=== PATIENT | male | born 1930 | race Two or more races ===

== ENCOUNTER 2021-05-11 23:19 | Inpatient (IN) | payer MEDICARE ==
[2021-05-11] MEDS ORDERED: SODIUM CHLORIDE 0.9% 1,000 ML IV STA (23:36)
--- NOTE | 2021-05-11 23:40 | ED ---
Weakness HPI - General Chief complaint: Weakness Stated complaint: Weakness, SOB Time Seen by Provider: 05/11/21 23:23 Source: EMS, RN notes reviewed, old records reviewed Mode of arrival: EMS Limitations: physical limitation - History of Present Illness Initial comments: This is an 89-year-old male to the ER for evaluation. Patient is presenting for weakness and not feeling well. Patient was unable to get out of his bed today. Patient has no recent sick contacts no travel history. Patient was unable to get out of bed. Patient is a relatively poor story, history obtained from EMS and patient's chart MD Complaint: generalized weakness, lack of energy, difficulty walking -: hour(s) Location: generalized Severity: moderate Consistency: constant Improves with: none Worsens with: none Context: recent illness, history of similar Associated Symptoms: denies other symptoms - Related Data Allergies Allergy/AdvReac Type Severity Reaction Status Date / Time No Known Allergies Allergy Verified 05/11/21 23:36 Review of Systems ROS Statement: Those systems with pertinent positive or pertinent negative responses have been documented in the HPI. ROS Other: All systems not noted in ROS Statement are negative. Past Medical History History of Any Multi-Drug Resistant Organisms: None Reported Past Surgical History: Pacemaker Past Psychological History: No Psychological Hx Reported Smoking Status: Former smoker Past Alcohol Use History: None Reported Past Drug Use History: None Reported General Exam Limitations: physical limitation General appearance: alert, in no apparent distress Head exam: Present: atraumatic, normocephalic, normal inspection Eye exam: Present: normal appearance, PERRL, EOMI. Absent: scleral icterus, conjunctival injection, periorbital swelling ENT exam: Present: normal exam, mucous membranes moist Neck exam: Present: normal inspection. Absent: tenderness, meningismus, lymphadenopathy Respiratory exam: Present: normal lung sounds bilaterally. Absent: respiratory distress, wheezes, rales, rhonchi, stridor Cardiovascular Exam: Present: regular rate, normal rhythm, normal heart sounds. Absent: systolic murmur, diastolic murmur, rubs, gallop, clicks GI/Abdominal exam: Present: soft, normal bowel sounds. Absent: distended, tenderness, guarding, rebound, rigid Extremities exam: Present: normal inspection, full ROM, normal capillary refill. Absent: tenderness, pedal edema, joint swelling, calf tenderness Back exam: Present: normal inspection Neurological exam: Present: alert, oriented X3, CN II-XII intact Psychiatric exam: Present: normal affect, normal mood Skin exam: Present: warm, dry, intact, normal color. Absent: rash Course Vital Signs 05/11/21 05/11/21 05/12/21 23:22 23:33 01:00 Temperature 101.4 F H Pulse Rate 80 69 Respiratory 18 18 20 Rate Blood Pressure 120/63 87/53 O2 Sat by Pulse 92 L Oximetry 05/12/21 05/12/21 05/12/21 01:15 01:30 02:37 Temperature Pulse Rate 70 Respiratory 20 21 Rate Blood Pressure 80/45 95/46 92/54 O2 Sat by Pulse 96 96 Oximetry - Reevaluation(s) Reevaluation #1: 05/11/21 23:50 Medical record is reviewed Reevaluation #2: 05/12/21 03:13 Has labile blood pressure, patient is given ideal body weight dosing, due to low blood pressure of IV fluid. Unknown source of sepsis but patient being treated as sepsis at this time Reevaluation #3: 05/12/21 03:14 Patient has fully placed for evaluation of possible UTI - Consultations Consultation #1: Spoke with sound who will admit this patient EKG Findings - EKG Comments: EKG Findings:: KG shows wide QRS rate around 60, QRS 122 QTC 179 Procedures - Sepsis Sepsis Focused Exam #1 Time Sepsis Criteria Met: 03:15 Sepsis Focused Exam Date: 05/12/21 Sepsis Focused Exam Time: 05:00 Sepsis Focused Exam Complete: Yes Vital Signs & RN Notes Reviewed: Yes Capillary Refill: < 2 Seconds: Fingers, Toes Peripheral Pulses: Normal: Radial (R), Radial (L), Posterior Tibialis (R), Posterior Tibialis (L), Dorsalis Pedis (R), Dorsalis Pedis (L) Skin Color: Normal for Patient Respiratory Exam: normal lung sounds Cardiovascular Exam: regular rate Medical Decision Making - Medical Decision Making 89 male to the ER for evaluation. Patient states he will be admitted for evaluation regards to fever and sepsis - Lab Data Result diagrams: 05/11/21 23:44 05/11/21 23:44 Lab Results 05/11/21 05/11/21 05/11/21 Range/Units 23:44 23:44 23:44 WBC 17.4 H (3.8-10.6) k/uL RBC 3.90 L (4.30-5.90) m/uL Hgb 12.9 L (13.0-17.5) gm/dL Hct 37.4 L (39.0-53.0) % MCV 95.8 (80.0-100.0) fL MCH 33.0 (25.0-35.0) pg MCHC 34.4 (31.0-37.0) g/dL RDW 14.3 (11.5-15.5) % Plt Count 122 L (150-450) k/uL MPV 7.5 Neutrophils % 91 % Lymphocytes % 3 % Monocytes % 4 % Eosinophils % 1 % Basophils % 0 % Neutrophils # 15.9 H (1.3-7.7) k/uL Lymphocytes # 0.6 L (1.0-4.8) k/uL Monocytes # 0.7 (0-1.0) k/uL Eosinophils # 0.1 (0-0.7) k/uL Basophils # 0.1 (0-0.2) k/uL PT 51.0 H (9.0-12.0) sec INR 5.3 H* (<1.2) APTT 46.7 H (22.0-30.0) sec Sodium 137 (137-145) mmol/L Potassium 5.8 H (3.5-5.1) mmol/L Chloride 114 H (98-107) mmol/L Carbon Dioxide 13 L (22-30) mmol/L Anion Gap 10 mmol/L BUN 89 H (9-20) mg/dL Creatinine 2.28 H (0.66-1.25) mg/dL Est GFR (CKD-EPI)AfAm 28 (>60 ml/min/1.73 sqM) Est GFR (CKD-EPI)NonAf 25 (>60 ml/min/1.73 sqM) Glucose 122 H (74-99) mg/dL Plasma Lactic Acid Robby (0.7-2.0) mmol/L Calcium 8.6 (8.4-10.2) mg/dL Phosphorus 3.7 (2.5-4.5) mg/dL Magnesium 2.0 (1.6-2.3) mg/dL Total Bilirubin 0.6 (0.2-1.3) mg/dL AST 59 (17-59) U/L ALT 31 (4-49) U/L Alkaline Phosphatase 108 (38-126) U/L Creatine Kinase 63 (55-170) U/L CK-MB (CK-2) (0.0-2.4) ng/mL Troponin I (0.000-0.034) ng/mL C-Reactive Protein 1.3 H (<1.0) mg/dL NT-Pro-B Natriuret Pep pg/mL Total Protein 6.2 L (6.3-8.2) g/dL Albumin 3.4 L (3.5-5.0) g/dL TSH 3.350 (0.465-4.680) mIU/L Coronavirus (PCR) (Not Detectd) 05/11/21 05/11/21 05/11/21 Range/Units 23:44 23:44 23:44 WBC (3.8-10.6) k/uL RBC (4.30-5.90) m/uL Hgb (13.0-17.5) gm/dL Hct (39.0-53.0) % MCV (80.0-100.0) fL MCH (25.0-35.0) pg MCHC (31.0-37.0) g/dL RDW (11.5-15.5) % Plt Count (150-450) k/uL MPV Neutrophils % % Lymphocytes % % Monocytes % % Eosinophils % % Basophils % % Neutrophils # (1.3-7.7) k/uL Lymphocytes # (1.0-4.8) k/uL Monocytes # (0-1.0) k/uL Eosinophils # (0-0.7) k/uL Basophils # (0-0.2) k/uL PT (9.0-12.0) sec INR (<1.2) APTT (22.0-30.0) sec Sodium (137-145) mmol/L Potassium (3.5-5.1) mmol/L Chloride (98-107) mmol/L Carbon Dioxide (22-30) mmol/L Anion Gap mmol/L BUN (9-20) mg/dL Creatinine (0.66-1.25) mg/dL Est GFR (CKD-EPI)AfAm (>60 ml/min/1.73 sqM) Est GFR (CKD-EPI)NonAf (>60 ml/min/1.73 sqM) Glucose (74-99) mg/dL Plasma Lactic Acid Robby 1.1 (0.7-2.0) mmol/L Calcium (8.4-10.2) mg/dL Phosphorus (2.5-4.5) mg/dL Magnesium (1.6-2.3) mg/dL Total Bilirubin (0.2-1.3) mg/dL AST (17-59) U/L ALT (4-49) U/L Alkaline Phosphatase (38-126) U/L Creatine Kinase (55-170) U/L CK-MB (CK-2) 1.4 (0.0-2.4) ng/mL Troponin I 0.030 (0.000-0.034) ng/mL C-Reactive Protein (<1.0) mg/dL NT-Pro-B Natriuret Pep 3530 pg/mL Total Protein (6.3-8.2) g/dL Albumin (3.5-5.0) g/dL TSH (0.465-4.680) mIU/L Coronavirus (PCR) (Not Detectd) 05/11/21 Range/Units 23:44 WBC (3.8-10.6) k/uL RBC (4.30-5.90) m/uL Hgb (13.0-17.5) gm/dL Hct (39.0-53.0) % MCV (80.0-100.0) fL MCH (25.0-35.0) pg MCHC (31.0-37.0) g/dL RDW (11.5-15.5) % Plt Count (150-450) k/uL MPV Neutrophils % % Lymphocytes % % Monocytes % % Eosinophils % % Basophils % % Neutrophils # (1.3-7.7) k/uL Lymphocytes # (1.0-4.8) k/uL Monocytes # (0-1.0) k/uL Eosinophils # (0-0.7) k/uL Basophils # (0-0.2) k/uL PT (9.0-12.0) sec INR (<1.2) APTT (22.0-30.0) sec Sodium (137-145) mmol/L Potassium (3.5-5.1) mmol/L Chloride (98-107) mmol/L Carbon Dioxide (22-30) mmol/L Anion Gap mmol/L BUN (9-20) mg/dL Creatinine (0.66-1.25) mg/dL Est GFR (CKD-EPI)AfAm (>60 ml/min/1.73 sqM) Est GFR (CKD-EPI)NonAf (>60 ml/min/1.73 sqM) Glucose (74-99) mg/dL Plasma Lactic Acid Robby (0.7-2.0) mmol/L Calcium (8.4-10.2) mg/dL Phosphorus (2.5-4.5) mg/dL Magnesium (1.6-2.3) mg/dL Total Bilirubin (0.2-1.3) mg/dL AST (17-59) U/L ALT (4-49) U/L Alkaline Phosphatase (38-126) U/L Creatine Kinase (55-170) U/L CK-MB (CK-2) (0.0-2.4) ng/mL Troponin I (0.000-0.034) ng/mL C-Reactive Protein (<1.0) mg/dL NT-Pro-B Natriuret Pep pg/mL Total Protein (6.3-8.2) g/dL Albumin (3.5-5.0) g/dL TSH (0.465-4.680) mIU/L Coronavirus (PCR) Not Detected (Not Detectd) Critical Care Time Critical Care Time: Yes Total Critical Care Time: 31 Disposition Clinical Impression: Fever, Sepsis Disposition: ADMITTED IP TO THIS HOSP Condition: Fair Is patient prescribed a controlled substance at d/c from ED?: No Referrals: None,Stated [Primary Care Provider] - 1-2 days
[2021-05-12] MEDS ORDERED: IBUPROFEN 600 MG TAB PO STA (00:12)
[2021-05-12 00:24] LABS: Basophils # (A) 0.1 k/uL (0-0.2); Basophils % (A) 0 %; Eosinophils # (A) 0.1 k/uL (0-0.7); Eosinophils % (A) 1 %; HCT 37.4 % (39.0-53.0); HGB 12.9 gm/dL (13.0-17.5); Lymphocytes # (A) 0.6 k/uL (1.0-4.8); Lymphocytes % (A) 3 %; MCHC 34.4 g/dL (31.0-37.0); MCV 95.8 fL (80.0-100.0); Mean Platelet Volume 7.5; Monocytes # (A) 0.7 k/uL (0-1.0); Monocytes % (A) 4 %; Neutrophils # (A) 15.9 k/uL (1.3-7.7); Neutrophils % (A) 91 %; Platelet Count 122 k/uL (150-450); RDW 14.3 % (11.5-15.5); WBC 17.4 k/uL (3.8-10.6)
--- NOTE | 2021-05-12 00:30 | XR ---
EXAMINATION TYPE: XR chest 2V DATE OF EXAM: 05/12/2021 COMPARISON: NONE HISTORY: Weakness TECHNIQUE: 2 views FINDINGS: Heart is enlarged. There is no heart failure. There is left axillary pacemaker. There is ri ght shoulder prosthesis. Costophrenic angles are fairly clear. IMPRESSION: Cardiomegaly. No heart failure or pulmonary consolidation.
[2021-05-12 00:39] LABS: Partial Thromboplastin Time 46.7 sec (22.0-30.0)
[2021-05-12 00:41] LABS: INR 5.3 (<1.2)
[2021-05-12 01:02] LABS: Creatine Kinase MB 1.4 ng/mL (0.0-2.4); Troponin I 0.03 ng/mL (0.000-0.034)
[2021-05-12 01:06] LABS: Albumin 3.4 g/dL (3.5-5.0); C Reactive Protein 1.3 mg/dL (<1.0); Calcium 8.6 mg/dL (8.4-10.2); Phosphorus 3.7 mg/dL (2.5-4.5); Potassium 5.8 mmol/L (3.5-5.1); Total Bilirubin 0.6 mg/dL (0.2-1.3); Total Protein 6.2 g/dL (6.3-8.2)
[2021-05-12] MEDS ORDERED: SODIUM CHLORIDE 0.9% 2,000 ML IV STA (01:44)
[2021-05-12] MEDS ORDERED: SODIUM CHLORIDE 0.9% 1,000 ML IV STA (01:44)
[2021-05-12] MEDS ORDERED: ONDANSETRON 4 MG/2 ML VIAL IVP PRN (03:12)
[2021-05-12] MEDS ORDERED: NALOXONE 0.4 MG/ML 1 ML VIAL IV PRN (03:12)
[2021-05-12] MEDS ORDERED: MORPHINE SULFATE 4 MG/ML SYRINGE IV PRN (03:12)
[2021-05-12] MEDS ORDERED: SODIUM CHLORIDE 0.9% 1,000 ML IV SCH (03:15)
[2021-05-12 03:25] LABS: Appearance,Urine Clear (Clear); Bacteria,Urine Rare /hpf; Bilirubin,Urine Negative (Negative); Blood,Urine Small (Negative); Color,Urine Yellow; Glucose,Urine (UA) Negative (Negative); Hyaline Casts,Urine 7 /lpf (0-2); Ketones,Urine Negative (Negative); Leukocyte Esterase,Urine Negative (Negative); Mucus,Urine Rare /hpf; Nitrite,Urine Negative (Negative); Protein,Urine Negative (Negative); RBC,Urine 2 /hpf (0-5); Specific Gravity,Urine 1.013 (1.001-1.035); Squamous Epithelial Cell,Urine <1 /hpf (0-4); Urobilinogen,Urine <2.0 mg/dL (<2.0); WBC,Urine 1 /hpf (0-5)
[2021-05-12] MEDS ORDERED: SODIUM CHLORIDE 0.9% 1,000 ML IV ONE (03:30)
[2021-05-12] MEDS ORDERED: VANCOMYCIN IV PER PHARMACY 1 EACH MISC MISCELLANE PRN (04:29)
--- NOTE | 2021-05-12 04:35 | P.HPIM ---
History of Present Illness H&P Date: 05/12/21 Patient is a pleasant 89-year-old male with a PMH of Afib on Coumadin, chronic CHF, BPH gout, hypertension, and hyperlipidemia who presented to the emergency room with complaints of lethargy and chills. History supplemented by the at the bedside. They report that over the past few days, they have noticed his activity level continues to deteriorate. The patient reports feeling tired and that he also developed chills over the past 2 days. He denied any additional complaints. Denied urinary complaints, cough, diarrhea. Also denied headaches, weakness, numbness, tingling. Also denied chest pain, shortness of breath. He normally is able to ambulate with a walker but was unable toasts stand up at all over the past 1-2 days Laboratory evaluation in the emergency room revealed WBC count of 17.4, hemoglobin 12.9, potassium 5.8, CO2 13, BUN 89, creatinine 2.28, unremarkable UA. Review of systems: Pertinent positives and negatives as discussed in HPI, a complete review of systems was performed and all other systems are negative. Physical examination: General: non toxic, no distress, appears at stated age, obese Derm: no unusual rashes/lesions no unusual ecchymoses, warm, dry Head: atraumatic, normocephalic, symmetric Eyes: EOMI, no lid lag, anicteric sclera, pupils equal round reactive to light ENT: Nose and ears atraumatic, no thrush, no pharyngeal erythema Neck: No thyromegaly, no cervical lymphadenopathy, trachea midline, supple Mouth: no lip lesion, mucus membranes moist Cardiovascular: S1S2 reg, no murmur, positive posterior tibial pulse bilateral, 2+ zaira LE pitting edema w/ chronic venous stasis changes, capillary refill less than 2 seconds Lungs: CTA bilateral, no rhonchi, no rales , no accessory muscle use Abdominal: soft, nontender to palpation, no guarding, no appreciable organomegaly, normal bowel sounds Ext: no gross muscle atrophy, muscle strength 4 out of 5 in all 4 extremities grossly, no contractures, Neuro: CN II-XI grossly intact, light touch intact all 4 extremities, finger to nose within normal limits, Psych: Alert, oriented, appropriate affect Assessment/plan SIRS of unknown etiology -Follow blood cultures -Empiric antibiotics for now -ID consult Kidney injury, acute versus chronic -Continue to monitor BMP -Hold off on IV fluids in setting of significant CHF history Chronic conditions: Hypertension, hyperlipidemia, chronic CHF -Hold off on her home antihypertensives in setting of borderline BP -Continue with remaining home medications DVT prophylaxis -Coumadin The patient is admitted with an anticipated than 2 midnight stay for evaluation of SIRS. CODE STATUS:Full Code Discussed with: Patient, Anticipated discharge date: 2-[address]: Home Past Medical History Past Medical History: Atrial Fibrillation, GERD/Reflux, Hypertension, Osteoarthritis (OA) Additional Past Medical History / Comment(s): Pts History of Any Multi-Drug Resistant Organisms: None Reported Past Surgical History: Pacemaker Additional Past Surgical History / Comment(s): Gallbladder removed, pt has a hx of two pacemakers placed. Past Psychological History: No Psychological Hx Reported Smoking Status: Former smoker Past Alcohol Use History: None Reported Past Drug Use History: None Reported Medications and Allergies Allergies Allergy/AdvReac Type Severity Reaction Status Date / Time No Known Allergies Allergy Verified 05/11/21 23:36 Physical Exam Vitals: Vital Signs Temp Pulse Resp BP Pulse Ox 05/12/21 03:16 69 105/54 05/12/21 02:37 92/54 05/12/21 01:30 70 21 95/46 96 05/12/21 01:15 20 80/45 96 05/12/21 01:00 69 20 87/53 05/11/21 23:33 18 05/11/21 23:22 101.4 F H 80 18 120/63 92 L Intake and Output 05/11/21 05/11/21 05/12/21 14:59 22:59 06:59 Other: Weight 111.13 kg Results CBC & Chem 7: 05/11/21 23:44 05/11/21 23:44 Labs: Abnormal Lab Results - Last 24 Hours (Table) 05/11/21 05/11/21 05/11/21 Range/Units 23:44 23:44 23:44 WBC 17.4 H (3.8-10.6) k/uL RBC 3.90 L (4.30-5.90) m/uL Hgb 12.9 L (13.0-17.5) gm/dL Hct 37.4 L (39.0-53.0) % Plt Count 122 L (150-450) k/uL Neutrophils # 15.9 H (1.3-7.7) k/uL Lymphocytes # 0.6 L (1.0-4.8) k/uL PT 51.0 H (9.0-12.0) sec INR 5.3 H* (<1.2) APTT 46.7 H (22.0-30.0) sec Potassium 5.8 H (3.5-5.1) mmol/L Chloride 114 H (98-107) mmol/L Carbon Dioxide 13 L (22-30) mmol/L BUN 89 H (9-20) mg/dL Creatinine 2.28 H (0.66-1.25) mg/dL Glucose 122 H (74-99) mg/dL C-Reactive Protein 1.3 H (<1.0) mg/dL Total Protein 6.2 L (6.3-8.2) g/dL Albumin 3.4 L (3.5-5.0) g/dL Urine Blood (Negative) Urine Bacteria (None) /hpf Hyaline Casts (0-2) /lpf Urine Mucus (None) /hpf 05/12/ Range/Units 03:15 WBC (3.8-10.6) k/uL RBC (4.30-5.90) m/uL Hgb (13.0-17.5) gm/dL Hct (39.0-53.0) % Plt Count (150-450) k/uL Neutrophils # (1.3-7.7) k/uL Lymphocytes # (1.0-4.8) k/uL PT (9.0-12.0) sec INR (<1.2) APTT (22.0-30.0) sec Potassium (3.5-5.1) mmol/L Chloride (98-107) mmol/L Carbon Dioxide (22-30) mmol/L BUN (9-20) mg/dL Creatinine (0.66-1.25) mg/dL Glucose (74-99) mg/dL C-Reactive Protein (<1.0) mg/dL Total Protein (6.3-8.2) g/dL Albumin (3.5-5.0) g/dL Urine Blood Small H (Negative) Urine Bacteria Rare H (None) /hpf Hyaline Casts 7 H (0-2) /lpf Urine Mucus Rare H (None) /hpf
[2021-05-12] MEDS ORDERED: VANCOMYCIN 1,750 MG in SODIUM CHLORIDE 0.9% 500 ML 500 ML IVPB ONE (04:45)
[2021-05-12] MEDS ORDERED: CALCIUM GLUCONATE 1 GM in SODIUM CHLORIDE 0.9% 100 ML IVPB ONE (08:00)
[2021-05-12] MEDS ORDERED: PIPERACILLIN-TAZOBACTAM 3.375 GM in SODIUM CHLORIDE 0.9% 100 ML IVPB SCH (09:00)
--- NOTE | 2021-05-12 09:16 | XR ---
EXAMINATION TYPE: XR chest 1V portable DATE OF EXAM: 05/12/2021 COMPARISON: 05/12/2021 INDICATION: Short of breath TECHNIQUE: Single frontal view of the chest is obtained. FINDINGS: The heart size is mildly prominent. Pacemaker overlies left chest. The pulmonary vasculature is normal. The lungs are clear. There is left shoulder prosthesis. IMPRESSION: 1. No acute pulmonary process.
[2021-05-12 09:17] LABS: HCT 36.7 % (39.0-53.0); HGB 12.1 gm/dL (13.0-17.5); Hypochromasia Slight; MCH 32.9 pg (25.0-35.0); MCHC 32.9 g/dL (31.0-37.0); MCV 100.2 fL (80.0-100.0); Macrocytosis Slight; Mean Platelet Volume 7.2; Platelet Count 119 k/uL (150-450); RBC 3.67 m/uL (4.30-5.90); RDW 14.8 % (11.5-15.5); WBC 15.1 k/uL (3.8-10.6)
[2021-05-12 09:23] LABS: Magnesium 1.9 mg/dL (1.6-2.3); Phosphorus 3.8 mg/dL (2.5-4.5); Potassium 5.4 mmol/L (3.5-5.1); Total Bilirubin 0.5 mg/dL (0.2-1.3); Total Protein 5.8 g/dL (6.3-8.2)
[2021-05-12 09:26] LABS: Prothrombin Time 58.2 sec (9.0-12.0)
[2021-05-12] MEDS ORDERED: FUROSEMIDE 10 MG/ML 4 ML VIAL IV STA (09:49)
[2021-05-12] MEDS: PANTOPRAZOLE 40 MG/10 ML VIAL IV SCH (09:49)
[2021-05-12 11:00] VITALS: BMI 35.1
--- NOTE | 2021-05-12 14:02 | P.PN ---
Subjective Progress Note Date: 05/12/21 Principal diagnosis: rigors Hospitalist Interval Note Patient seen and examined at bedside. He is feeling somewhat better than on admission. Still feeling short of breath. Denies any nausea or vomiting. Feels very cold and overall not right. Vital signs reviewed General: non toxic, no distress, appears at stated age Derm: Right second toe with some swelling, erythema, and a slight area of necrosis on the tip, hemosiderin deposits bilateral with thick yellow scale, onychomycoses noted warm, dry Head: atraumatic, normocephalic, symmetric Eyes: EOMI, no lid lag, anicteric sclera Mouth: no lip lesion, mucus membranes moist Cardiovascular: S1S2 reg, no murmur, positive posterior tibial pulse bilateral, Lungs: Coarse breath sounds bilateral bilateral, no rhonchi, no rales , no accessory muscle use Abdominal: soft, nontender to palpation, no guarding, no appreciable organomegaly Ext: no gross muscle atrophy, no edema, no contractures Neuro: CN II-XI grossly intact, no focal neuro deficits Psych: Alert, oriented, appropriate affect Assessment/Plan: Sepsis Possible infection right second toe coumadin toxicity hyperkalemia ayah anemia HTN HLD CHF, chornic, unknown type thrombocytopenia - rocephin, vanco X 1 given, check XR right foot. - D/W ID who will evaluate the toe and make further recommendations - Calcium gluconate, Lasix X 1 with IVF to wast potassium - await blood cultures - lisinopril on hold This is an update note for patient , for full note on 05/12 see H and P. There is no charge associated with this note. Objective - Vital Signs Vital signs: Vital Signs Temp 98.3 F 05/12/21 12:00 Pulse 68 05/12/21 12:00 Resp 18 05/12/21 12:00 BP 112/67 05/12/21 12:00 Pulse Ox 96 05/12/21 12:00 Intake & Output 05/11/21 05/12/21 05/12/21 18:59 06:59 18:59 Intake Total 118 Output Total 100 Balance -100 118 Weight 111 kg 111 kg Intake: Oral 118 Output: Urine 100 Uretheral (Rangel) 100 Other: Voiding Method Indwelling Catheter - Labs CBC & Chem 7: 05/12/21 08:47 05/12/21 08:47 Labs: Abnormal Lab Results - Last 24 Hours (Table) 05/11/21 05/11/21 05/11/21 Range/Units 23:44 23:44 23:44 WBC 17.4 H (3.8-10.6) k/uL RBC 3.90 L (4.30-5.90) m/uL Hgb 12.9 L (13.0-17.5) gm/dL Hct 37.4 L (39.0-53.0) % MCV (80.0-100.0) fL Plt Count 122 L (150-450) k/uL Neutrophils # 15.9 H (1.3-7.7) k/uL Lymphocytes # 0.6 L (1.0-4.8) k/uL PT 51.0 H (9.0-12.0) sec INR 5.3 H* (<1.2) APTT 46.7 H (22.0-30.0) sec Potassium 5.8 H (3.5-5.1) mmol/L Chloride 114 H (98-107) mmol/L Carbon Dioxide 13 L (22-30) mmol/L BUN 89 H (9-20) mg/dL Creatinine 2.28 H (0.66-1.25) mg/dL Glucose 122 H (74-99) mg/dL Calcium (8.4-10.2) mg/dL C-Reactive Protein 1.3 H (<1.0) mg/dL Total Protein 6.2 L (6.3-8.2) g/dL Albumin 3.4 L (3.5-5.0) g/dL Urine Blood (Negative) Urine Bacteria (None) /hpf Hyaline Casts (0-2) /lpf Urine Mucus (None) /hpf 05/12/21 05/12/21 05/12/21 Range/Units 03:15 08:47 08:47 WBC 15.1 H (3.8-10.6) k/uL RBC 3.67 L (4.30-5.90) m/uL Hgb 12.1 L (13.0-17.5) gm/dL Hct 36.7 L (39.0-53.0) % MCV 100.2 H (80.0-100.0) fL Plt Count 119 L (150-450) k/uL Neutrophils # (1.3-7.7) k/uL Lymphocytes # (1.0-4.8) k/uL PT 58.2 H (9.0-12.0) sec INR 6.0 H* (<1.2) APTT (22.0-30.0) sec Potassium (3.5-5.1) mmol/L Chloride (98-107) mmol/L Carbon Dioxide (22-30) mmol/L BUN (9-20) mg/dL Creatinine (0.66-1.25) mg/dL Glucose (74-99) mg/dL Calcium (8.4-10.2) mg/dL C-Reactive Protein (<1.0) mg/dL Total Protein (6.3-8.2) g/dL Albumin (3.5-5.0) g/dL Urine Blood Small H (Negative) Urine Bacteria Rare H (None) /hpf Hyaline Casts 7 H (0-2) /lpf Urine Mucus Rare H (None) /hpf 05/12/21 Range/Units 08:47 WBC (3.8-10.6) k/uL RBC (4.30-5.90) m/uL Hgb (13.0-17.5) gm/dL Hct (39.0-53.0) % MCV (80.0-100.0) fL Plt Count (150-450) k/uL Neutrophils # (1.3-7.7) k/uL Lymphocytes # (1.0-4.8) k/uL PT (9.0-12.0) sec INR (<1.2) APTT (22.0-30.0) sec Potassium 5.4 H (3.5-5.1) mmol/L Chloride 117 H (98-107) mmol/L Carbon Dioxide 14 L (22-30) mmol/L BUN 80 H (9-20) mg/dL Creatinine 1.98 H (0.66-1.25) mg/dL Glucose 124 H (74-99) mg/dL Calcium 8.0 L (8.4-10.2) mg/dL C-Reactive Protein (<1.0) mg/dL Total Protein 5.8 L (6.3-8.2) g/dL Albumin 3.0 L (3.5-5.0) g/dL Urine Blood (Negative) Urine Bacteria (None) /hpf Hyaline Casts (0-2) /lpf Urine Mucus (None) /hpf
[2021-05-12 15:08] LABS: Appearance,Urine Cloudy (Clear); Bacteria,Urine Rare /hpf; Bilirubin,Urine Negative (Negative); Blood,Urine Moderate (Negative); Color,Urine Colorless; Glucose,Urine (UA) Negative (Negative); Ketones,Urine Negative (Negative); Leukocyte Esterase,Urine Large (Negative); Mucus,Urine Rare /hpf; Nitrite,Urine Negative (Negative); Protein,Urine Negative (Negative); RBC,Urine 21 /hpf (0-5); Specific Gravity,Urine 1.007 (1.001-1.035); Squamous Epithelial Cell,Urine <1 /hpf (0-4); Urobilinogen,Urine <2.0 mg/dL (<2.0); WBC,Urine 46 /hpf (0-5)
[2021-05-12] MEDS: metroNIDAZOLE 500 MG TAB PO SCH ×2 (15:13→20:24)
--- NOTE | 2021-05-12 15:56 | XR ---
EXAMINATION TYPE: XR foot limited RT DATE OF EXAM: 05/12/2021 COMPARISON: NONE HISTORY: Pain TECHNIQUE: Three views are submitted. FINDINGS: Successful phalanges difficult due to positioning and flexion. Diffuse osteopenia with vascular calci fications and calcaneal spur. Arthropathy of the tarsometatarsal junction, all PIP, DIP and MTP joint s. No obvious fracture as visualized. IMPRESSION: 1. Limited exam demonstrates no definite destructive change or acute fracture. Distal phalanx second digit not well seen. Correlate with triple phase bone scan if there is concern for osteomyelitis. 2. Arthropathy and diffuse osteopenia.
[2021-05-12] MEDS ORDERED: WARFARIN 0.5 MG TAB PO ONE (18:00)
[2021-05-12] MEDS: GABAPENTIN 100 MG CAP PO SCH (20:24)
--- NOTE | 2021-05-12 23:20 | P.CONS ---
History of Present Illness - Reason for Consult Consult date: 05/12/21 sepsis Requesting physician: Ramila Guerrero - Chief Complaint not feeling well and diarrhea x 1 day - History of Present Illness History of present illness : Patient is 89-year male presented to the hospital last night for evaluation of weakness and not feeling well patient was unable to get out of bed the day of presentation to the hospital the patient also complaining of diarrhea he did have 4 episodes of loose stool no blood or mucus in the stool patient denies any abdominal pain no nausea no vomiting patient also have difficulty urination and a Rangel catheter has to be placed when the patient presented to hospital on arrival to the ER the patient had a fe layla of 101 F patient did have white count of 17.4 with a left shift INR was elevated as well as BUN and creatinine liver enzymes are normal patient did have a negative UA cortez PCR was negative patient was started on vancomycin and Zosyn with concern for possible source of sepsis infectious disease was consulted for further management patient did have a chest x-ray with cardiomegaly but no heart failure or pulmonary consolidation patient also have a slight swelling to the right second toe with the nail being damaged however the patient currently do not have any symptom of pain to the right second toe Review of system: Positive point has been mentioned in HPI rest of the systems are negative Past medical history : Reviewed, documented below Past surgical history : Reviewed, documented below Social history: Reviewed, documented below Medications: Reviewed, as documented below GENERAL DESCRIPTION: Elderly male lying in bed, no distress. No tachypnea or accessory muscle of respiration use. HEENT: Shows Pallor , no scleral icterus. Oral mucous membrane is dry. NECK: Trachea central, no thyromegaly. LUNGS: Unlabored breathing. Clear to auscultation anteriorly. No wheeze or crackle. HEART: S1, S2, regular rate and rhythm. ABDOMEN: Soft, no tenderness , guarding or rigidity EXTREMITIES: No edema of feet. Right second toe minimal swelling redness no drainage SKIN: No rash, no masses palpable. NEUROLOGICAL: The patient is awake, alert, oriented x3, mood and affect normal. LABS AND RADIOLOGY: Reviewed results see below Assessment : Patient presented to hospital with sepsis in this patient who did have a fever elevated white count in this patient apparently did have a GI s ymptoms of diarrhea and also difficulty urination likely source of sepsis is possible urinary tract infection initial UA was reported negative questionable level versus possible colitis in this we did have significant diarrhea but did not have any abdominal tenderness 2-patient with renal insufficiency and high risk of nephrotoxicity from vancomycin Plan: 1-we will repeat urine culture 2-check stool for significant stool culture 3-Zosyn to continue however discontinue vancomycin reviewed risk of nephrotoxicity We will follow on clinical condition and cultures to further adjust medication if needed Thank you for this consultation we will follow the patient along with you Past Medical History Past Medical History: Atrial Fibrillation, GERD/Reflux, Hypertension, Osteoarthritis (OA) Additional Past Medical History / Comment(s): Pts History of Any Multi-Drug Resistant Organisms: None Reported Past Surgical History: Pacemaker Additional Past Surgical History / Comment(s): Gallbladder removed, pt has a hx of two pacemakers placed. Past Anesthesia/Blood Transfusion Reactions: No Reported Reaction Type of Cardiac Device: Permanent Pacemaker Device Placement Date:: 2017 Past Psychological History: No Psychological Hx Reported Smoking Status: Former smoker Past Alcohol Use History: None Reported Past Drug Use History: None Reported - Past Family History Father Family Medical History: CVA/TIA, Myocardial Infarction ([place]) Medications and Allergies Home Medications Medication Instructions Recorded Confirmed Type Atenolol [Tenormin] 100 mg PO DAILY 05/12/21 05/12/21 History Ezetimibe [Zetia] 10 mg PO DAILY 05/12/21 05/12/21 History Gabapentin [Neurontin] 100 mg PO BID 05/12/21 05/12/21 History Pravastatin Sodium [Pravachol] 80 mg PO DAILY 05/12/21 05/12/21 History Warfarin [Coumadin] 2.5 mg PO FRSA@0900 05/12/21 05/12/21 History Warfarin [Coumadin] 5 mg PO SUMOTUWETH@0900 05/12/21 05/12/21 History lisinopriL 40 mg PO DAILY 05/12/21 05/12/21 History Allergies Allergy/AdvReac Type Severity Reaction Status Date / Time No Known Allergies Allergy Verified 05/12/21 09:09 Physical Exam Vitals: Vital Signs Temp Pulse Pulse Resp BP BP Pulse Ox 05/12/21 05:15 97.7 F 70 18 96/52 98 05/12/21 04:00 70 16 110/57 97 05/12/21 03:35 98.5 F 73 20 118/73 99 05/12/21 03:30 98.0 F 70 14 100/52 97 05/12/21 03:16 69 105/54 05/12/21 02:37 92/54 05/12/21 01:30 70 21 95/46 96 05/12/21 01:15 20 80/45 96 05/12/21 01:00 69 20 87/53 05/11/21 23:33 18 05/11/21 23:22 101.4 F H 80 18 120/63 92 L Intake and Output 05/11/21 05/12/21 05/12/21 22:59 06:59 14:59 Intake Total 118 Output Total 100 Balance -100 118 Intake: Oral 118 Output: Urine 100 Uretheral (Rangel) 100 Other: Voiding Method Indwelling Catheter Weight 111 kg Results CBC & Chem 7: 05/12/21 08:47 05/12/21 08:47 Labs: Abnormal Lab Results - Last 24 Hours (Table) 05/11/21 05/11/21 05/11/21 Range/Units 23:44 23:44 23:44 WBC 17.4 H (3.8-10.6) k/uL RBC 3.90 L (4.30-5.90) m/uL Hgb 12.9 L (13.0-17.5) gm/dL Hct 37.4 L (39.0-53.0) % MCV (80.0-100.0) fL Plt Count 122 L (150-450) k/uL Neutrophils # 15.9 H (1.3-7.7) k/uL Lymphocytes # 0.6 L (1.0-4.8) k/uL PT 51.0 H (9.0-12.0) sec INR 5.3 H* (<1.2) APTT 46.7 H (22.0-30.0) sec Potassium 5.8 H (3.5-5.1) mmol/L Chloride 114 H (98-107) mmol/L Carbon Dioxide 13 L (22-30) mmol/L BUN 89 H (9-20) mg/dL Creatinine 2.28 H (0.66-1.25) mg/dL Glucose 122 H (74-99) mg/dL Calcium (8.4-10.2) mg/dL C-Reactive Protein 1.3 H (<1.0) mg/dL Total Protein 6.2 L (6.3-8.2) g/dL Albumin 3.4 L (3.5-5.0) g/dL Urine Blood (Negative) Urine Bacteria (None) /hpf Hyaline Casts (0-2) /lpf Urine Mucus (None) /hpf 05/12/21 05/12/21 05/12/21 Range/Units 03:15 08:47 08:47 WBC 15.1 H (3.8-10.6) k/uL RBC 3.67 L (4.30-5.90) m/uL Hgb 12.1 L (13.0-17.5) gm/dL Hct 36.7 L (39.0-53.0) % MCV 100.2 H (80.0-100.0) fL Plt Count 119 L (150-450) k/uL Neutrophils # (1.3-7.7) k/uL Lymphocytes # (1.0-4.8) k/uL PT 58.2 H (9.0-12.0) sec INR 6.0 H* (<1.2) APTT (22.0-30.0) sec Potassium (3.5-5.1) mmol/L Chloride (98-107) mmol/L Carbon Dioxide (22-30) mmol/L BUN (9-20) mg/dL Creatinine (0.66-1.25) mg/dL Glucose (74-99) mg/dL Calcium (8.4-10.2) mg/dL C-Reactive Protein (<1.0) mg/dL Total Protein (6.3-8.2) g/dL Albumin (3.5-5.0) g/dL Urine Blood Small H (Negative) Urine Bacteria Rare H (None) /hpf Hyaline Casts 7 H (0-2) /lpf Urine Mucus Rare H (None) /hpf 05/12/21 Range/Units 08:47 WBC (3.8-10.6) k/uL RBC (4.30-5.90) m/uL Hgb (13.0-17.5) gm/dL Hct (39.0-53.0) % MCV (80.0-100.0) fL Plt Count (150-450) k/uL Neutrophils # (1.3-7.7) k/uL Lymphocytes # (1.0-4.8) k/uL PT (9.0-12.0) sec INR (<1.2) APTT (22.0-30.0) sec Potassium 5.4 H (3.5-5.1) mmol/L Chloride 117 H (98-107) mmol/L Carbon Dioxide 14 L (22-30) mmol/L BUN 80 H (9-20) mg/dL Creatinine 1.98 H (0.66-1.25) mg/dL Glucose 124 H (74-99) mg/dL Calcium 8.0 L (8.4-10.2) mg/dL C-Reactive Protein (<1.0) mg/dL Total Protein 5.8 L (6.3-8.2) g/dL Albumin 3.0 L (3.5-5.0) g/dL Urine Blood (Negative) Urine Bacteria (None) /hpf Hyaline Casts (0-2) /lpf Urine Mucus (None) /hpf
[2021-05-13] MEDS ORDERED: VANCOMYCIN 1,750 MG in SODIUM CHLORIDE 0.9% 500 ML 500 ML IVPB ONE (06:00)
[2021-05-13 07:57] LABS: Basophils % (A) 0 %; Eosinophils # (A) 0.2 k/uL (0-0.7); Eosinophils % (A) 2 %; HCT 34.6 % (39.0-53.0); HGB 11.4 gm/dL (13.0-17.5); Lymphocytes # (A) 1.4 k/uL (1.0-4.8); Lymphocytes % (A) 16 %; MCH 32.6 pg (25.0-35.0); MCV 98.9 fL (80.0-100.0); Macrocytosis Slight; Mean Platelet Volume 7.7; Monocytes # (A) 0.5 k/uL (0-1.0); Monocytes % (A) 6 %; Neutrophils # (A) 6.6 k/uL (1.3-7.7); Neutrophils % (A) 74 %; Platelet Count 106 k/uL (150-450); RDW 14.7 % (11.5-15.5); WBC 8.9 k/uL (3.8-10.6)
[2021-05-13 08:08] LABS: INR 3.7 (<1.2); Prothrombin Time 35.4 sec (9.0-12.0)
[2021-05-13 09:23] LABS: Albumin 2.7 g/dL (3.5-5.0); Calcium 8.5 mg/dL (8.4-10.2); Potassium 4.7 mmol/L (3.5-5.1); Total Bilirubin 0.3 mg/dL (0.2-1.3); Total Protein 5.4 g/dL (6.3-8.2)
[2021-05-13] MEDS: metroNIDAZOLE 500 MG TAB PO SCH ×3 (09:23→19:47)
[2021-05-13] MEDS: atenoloL 50 MG TAB PO SCH (09:23)
[2021-05-13] MEDS: PANTOPRAZOLE 40 MG/10 ML VIAL IV SCH (09:23)
[2021-05-13] MEDS: GABAPENTIN 100 MG CAP PO SCH ×2 (09:23→19:47)
[2021-05-13] MEDS: PRAVASTATIN SODIUM 80 MG TAB PO SCH (09:24)
[2021-05-13] MEDS: EZETIMIBE 10 MG TAB PO SCH (09:24)
--- NOTE | 2021-05-13 14:04 | P.PN ---
Subjective Progress Note Date: 05/13/21 Principal diagnosis: CC: weakness Patient is a pleasant 89-year-old male with a PMH of Afib on Coumadin, chronic CHF, BPH gout, hypertension, and hyperlipidemia who presented to the emergency room with complaints of lethargy and chills. On admission patient reported d ifficulty with urination as well as diarrhea. He had a fever of 101.4 and a WBC count of 17. This morning patient states that he is feeling better. He denies any nausea vomiting fever and chills. Patient states that prior to coming in he was having a difficult time with urination. He states Rangel catheter was placed in the ED. Objective - Vital Signs Vital signs: Vital Signs Temp 97.9 F 05/13/21 08:00 Pulse 70 05/13/21 12:00 Resp 17 05/13/21 12:00 BP 99/64 05/13/21 12:00 Pulse Ox 99 05/13/21 12:00 Intake & Output 05/12/21 05/13/21 05/13/21 18:59 06:59 18:59 Intake Total 598 240 530 Output Total 1800 2200 Balance -1202 -1960 530 Weight 111 kg 112.5 kg Intake: Intake, IV Titration 50 Amount cefTRIAXone 2 gm In 50 Sodium Chloride 0.9% 50 ml @ 100 mls/hr IVPB Q24HR [facility] Rx#:[id number] Oral 598 240 480 Output: Urine 1800 2200 Other: Voiding Method Indwelling Catheter Indwelling Catheter - Exam General examination - Alert and Oriented 3 in NAD, appears chronically debilitated Heart - + S1S2 no murmurs Lungs - Clear to auscultation Abdomen soft NT ND +ve BS, obese Extremities - No edema DIRECTOR DIGITAL [employer]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 - Moving all 4 extremities spontaneously Psych - Calm and cooperative - Labs CBC & Chem 7: 05/13/21 07:18 05/13/21 07:18 Labs: Abnormal Lab Results - Last 24 Hours (Table) 05/12/21 05/13/21 05/13/21 Range/Units 14:30 07:18 07:18 RBC 3.50 L (4.30-5.90) m/uL Hgb 11.4 L (13.0-17.5) gm/dL Hct 34.6 L (39.0-53.0) % Plt Count 106 L (150-450) k/uL PT 35.4 H (9.0-12.0) sec INR 3.7 H (<1.2) Chloride (98-107) mmol/L Carbon Dioxide (22-30) mmol/L BUN (9-20) mg/dL Creatinine (0.66-1.25) mg/dL Total Protein (6.3-8.2) g/dL Albumin (3.5-5.0) g/dL Urine Blood Moderate H (Negative) Ur Leukocyte Esterase Large H (Negative) Urine RBC 21 H (0-5) /hpf Urine WBC 46 H (0-5) /hpf Urine WBC Clumps Few H (None) /hpf Urine Bacteria Rare H (None) /hpf Urine Mucus Rare H (None) /hpf 05/13/21 Range/Units 07:18 RBC (4.30-5.90) m/uL Hgb (13.0-17.5) gm/dL Hct (39.0-53.0) % Plt Count (150-450) k/uL PT (9.0-12.0) sec INR (<1.2) Chloride 116 H (98-107) mmol/L Carbon Dioxide 14 L (22-30) mmol/L BUN 69 H (9-20) mg/dL Creatinine 1.63 H (0.66-1.25) mg/dL Total Protein 5.4 L (6.3-8.2) g/dL Albumin 2.7 L (3.5-5.0) g/dL Urine Blood (Negative) Ur Leukocyte Esterase (Negative) Urine RBC (0-5) /hpf Urine WBC (0-5) /hpf Urine WBC Clumps (None) /hpf Urine Bacteria (None) /hpf Urine Mucus (None) /hpf Microbiology - Last 24 Hours (Table) 05/11/21 23:44 Blood Culture - Preliminary Blood No Growth after 24 hours 05/11/21 23:44 Blood Culture - Preliminary Blood No Growth after 24 hours 05/12/21 14:30 Urine Culture - Preliminary Urine,Voided Assessment and Plan Assessment: #UTI with sepsis -Patient reported difficulty with urination on admission -Initial UA was unremarkable however repeat UA showed microscopic hematuria and also large leukocyte esterase and was cloudy -Follow-up urine culture -Follow blood cultures -ID started patient on Rocephin and Flagyl -WBC normalized and patient afebrile since admission #Urinary retention -Maintain Rangel catheter -Consult urology #Acute diarrhea -Resolved -Stool culture were not collected since patient has not had a bowel movement since last night. #Acute kidney injury with hyperkalemia -Improving #Persistent A. fib with supratherapeutic INR -Heart rate is controlled -Pharmacy to dose Coumadin -Trend INR #Right toe wound -will refer to door framer on discharge -No signs of osteomyelitis #Chronic conditions: Hypertension, hyperlipidemia, chronic CHF -Hold off on her home antihypertensives in setting of borderline BP -Continue with remaining home medications PT OT consult DVT prophylaxis -Supratherapeutic INR CODE STATUS:Full Code Anticipated discharge date: 1 to [address]: Home
--- NOTE | 2021-05-13 17:15 | PN ---
PROGRESS NOTE DATE OF SERVICE: 05/13/2021 REASON FOR FOLLOWUP: Fever, likely UTI. INTERVAL HISTORY: Patient is currently afebrile. The patient is feeling better. Breathing comfortably. Denies having any chest pain or cough. No nausea. No vomiting. No abdominal pain, diarrhea has resolved. EXAMINATION: Blood pressure 93/56, pulse of 73, temperature 98.1. He is 97% on 4 L nasal cannula. General description is an elderly male up in the chair in no distress. Respiratory system: Unlabored breathing, clear to auscultation anteriorly. Heart S1, S2. Regular rate and rhythm. Abdomen soft, no tenderness. LABS: Hemoglobin 11.1, white count 8.9, BUN of 69, creatinine 1.63. Repeat urine is positive. DIAGNOSTIC IMPRESSION AND PLAN: Patient with fever, source is likely urinary tract infection, complicated as the patient did require Rnagel catheter placement for retention. The patient is covered with Rocephin to continue while waiting for the culture to finalize. Family at the bedside. Questions were answered. MMODL / IJN: [id number] /
[2021-05-13] MEDS ORDERED: WARFARIN 0.5 MG TAB PO ONE (18:00)
[2021-05-14 07:41] LABS: INR 2.3 (<1.2)
[2021-05-14 07:55] LABS: Calcium 8.9 mg/dL (8.4-10.2); Potassium 5.5 mmol/L (3.5-5.1)
[2021-05-14] MEDS: atenoloL 50 MG TAB PO SCH (08:51)
[2021-05-14] MEDS: GABAPENTIN 100 MG CAP PO SCH ×2 (08:51→20:20)
[2021-05-14] MEDS: PANTOPRAZOLE 40 MG/10 ML VIAL IV SCH (08:52)
[2021-05-14] MEDS: EZETIMIBE 10 MG TAB PO SCH (08:52)
[2021-05-14] MEDS: PRAVASTATIN SODIUM 80 MG TAB PO SCH (08:52)
[2021-05-14] MEDS: metroNIDAZOLE 500 MG TAB PO SCH ×3 (08:52→20:20)
--- NOTE | 2021-05-14 09:58 | P.GSCN ---
History of Present Illness Consult date: 05/14/21 Reason for Consult: Urinary Retention Requesting physician: Ramila Guerrero History of present illness: The patient is an 89-year-old white male who resides in [place], [place]. He has a second home in [place]. He was brought to the ER for evaluation of weakness and chills. He was apparently found to be in urinary retention, and a Rangel catheter was placed in the emergency room. Unfortunately, I am unable to determine how much urine was obtained upon Rangel catheter placement. The patient states that he has had a weak urinary stream for many years. He has a urologist in the [facility] area whom he sees annually, and he has an appointment to see him in May or June. Review of his medications r eveals that he is not taking any BPH medications. He is a vague historian. Review of Systems - Constitutional Reports chills, Reports weakness, Denies fever - Gastrointestinal Denies nausea, Denies vomiting - Genitourinary Reports as per HPI Past Medical History Past Medical History: Atrial Fibrillation, GERD/Reflux, Hypertension, Osteoarthritis (OA) Additional Past Medical History / Comment(s): Pts History of Any Multi-Drug Resistant Organisms: None Reported Past Surgical History: Pacemaker Additional Past Surgical History / Comment(s): Gallbladder removed, pt has a hx of two pacemakers placed. Past Anesthesia/Blood Transfusion Reactions: No Reported Reaction Type of Cardiac Device: Permanent Pacemaker Device Placement Date:: 2017 Past Psychological History: No Psychological Hx Reported Smoking Status: Former smoker Past Alcohol Use History: None Reported Past Drug Use History: None Reported - Past Family History Father Family Medical History: CVA/TIA, Myocardial Infarction ([place]) Medications and Allergies Home Medications Medication Instructions Recorded Confirmed Type Atenolol [Tenormin] 100 mg PO DAILY 05/12/21 05/12/21 History Ezetimibe [Zetia] 10 mg PO DAILY 05/12/21 05/12/21 History Gabapentin [Neurontin] 100 mg PO BID 05/12/21 05/12/21 History Pravastatin Sodium [Pravachol] 80 mg PO DAILY 05/12/21 05/12/21 History Warfarin [Coumadin] 2.5 mg PO FRSA@0900 05/12/21 05/12/21 History Warfarin [Coumadin] 5 mg PO SUMOTUWETH@0900 05/12/21 05/12/21 History lisinopriL 40 mg PO DAILY 05/12/21 05/12/21 History Allergies Allergy/AdvReac Type Severity Reaction Status Date / Time No Known Allergies Allergy Verified 05/12/21 09:09 Surgical - Exam Vital Signs Temp Pulse Resp BP Pulse Ox 101.4 F H 80 18 120/63 92 L 05/11/21 23:22 05/11/21 23:22 05/11/21 23:22 05/11/21 23:22 05/11/21 23:22 - General well developed, well nourished, no distress - Respiratory normal respiratory effort - Abdomen Abdomen: soft, non tender, no guarding, no rigid, no rebound - Genitourinary Normal phallus, normal testes. There is mild penoscrotal edema. A Rangel catheter is in place, draining clear yellow urine. - Psychiatric oriented to time, oriented to person, oriented to place, speech is normal, memor y intact Results - Labs 05/13/21 07:18 05/14/21 07:16 Abnormal Lab Results - Last 24 Hours (Table) 05/14/21 05/14/21 Range/Units 07:16 07:16 PT 22.0 H (9.0-12.0) sec INR 2.3 H (<1.2) Potassium 5.5 H (3.5-5.1) mmol/L Chloride 110 H (98-107) mmol/L Carbon Dioxide 18 L (22-30) mmol/L BUN 83 H (9-20) mg/dL Creatinine 1.78 H (0.66-1.25) mg/dL Glucose 108 H (74-99) mg/dL Microbiology - Last 24 Hours (Table) 05/11/21 23:44 Blood Culture - Preliminary Blood No Growth after 48 hours 05/11/21 23:44 Blood Culture - Preliminary Blood No Growth after 48 hours 05/12/21 14:30 Urine Culture - Final Urine,Voided Diabetes panel 05/14/21 Range/Units 07:16 Sodium 137 (137-145) mmol/L Potassium 5.5 H (3.5-5.1) mmol/L Chloride 110 H (98-107) mmol/L Carbon Dioxide 18 L (22-30) mmol/L BUN 83 H (9-20) mg/dL Creatinine 1.78 H (0.66-1.25) mg/dL Glucose 108 H (74-99) mg/dL Calcium 8.9 (8.4-10.2) mg/dL Calcium panel 05/14/21 Range/Units 07:16 Calcium 8.9 (8.4-10.2) mg/dL Pituitary panel 05/14/21 Range/Units 07:16 Sodium 137 (137-145) mmol/L Potassium 5.5 H (3.5-5.1) mmol/L Chloride 110 H (98-107) mmol/L Carbon Dioxide 18 L (22-30) mmol/L BUN 83 H (9-20) mg/dL Creatinine 1.78 H (0.66-1.25) mg/dL Glucose 108 H (74-99) mg/dL Calcium 8.9 (8.4-10.2) mg/dL Adrenal panel 05/14/21 Range/Units 07:16 Sodium 137 (137-145) mmol/L Potassium 5.5 H (3.5-5.1) mmol/L Chloride 110 H (98-107) mmol/L Carbon Dioxide 18 L (22-30) mmol/L BUN 83 H (9-20) mg/dL Creatinine 1.78 H (0.66-1.25) mg/dL Glucose 108 H (74-99) mg/dL Calcium 8.9 (8.4-10.2) mg/dL Assessment and Plan (1) Retention of urine, unspecified Current Visit: Yes Status: Acute Code(s): R33.9 - RETENTION OF URINE, UNSPECIFIED SNOMED Code(s): 077372670 Plan: I have prescribed tamsulosin. The Rangel catheter should be removed in 48 hours for a voiding trial. Postvoid residuals should be monitored. If the patient is unable to void, or empties his bladder incompletely, I would suggest that the catheter be replaced and that he be discharged home with the Rangel catheter. He intends to follow up with his urologist in [facility] as he has an established relationship with him. Please notify us if we can be of further assistance. Time with Patient: Greater than 30
[2021-05-14] MEDS ORDERED: SODIUM POLYSTYRENE SULFONATE 15 GM/60 ML BOTTLE PO STA (10:05)
--- NOTE | 2021-05-14 10:08 | P.PN ---
Subjective Progress Note Date: 05/14/21 Principal diagnosis: CC: weakness Patient is a pleasant 89-year-old male with a PMH of Afib on Coumadin, chronic CHF, BPH gout, hypertension, and hyperlipidemia who presented to the emergency room with complaints of lethargy and chills. On admission patient reported d ifficulty with urination as well as diarrhea. He had a fever of 101.4 and a WBC count of 17. Patient had a Rangel catheter placed in the ED. Patient was started on IV Rocephin. Patient's diarrhea has resolved so no stool cultures were sent. Patient's fever have improved. His WBCs trending down. Patient states that he feels weak. He states that he has a poor baseline however he is currently much worse than his baseline. Patient states that he always has had shortness of breath. Patient seen by physical therapist yesterday who recommended [facility] facility. Objective - Vital Signs Vital signs: Vital Signs Temp 98.0 F 05/14/21 08:00 Pulse 71 05/14/21 08:00 Resp 17 05/14/21 08:00 BP 119/59 05/14/21 08:00 Pulse Ox 99 05/14/21 08:00 Intake & Output 05/13/21 05/14/21 05/14/21 18:59 06:59 18:59 Intake Total 530 290 Output Total 1000 325 Balance -470 -325 290 Intake: Intake, IV Titration 50 50 Amount cefTRIAXone 2 gm In 50 50 Sodium Chloride 0.9% 50 ml @ 100 mls/hr IVPB Q24HR [facility] Rx#:[id number] Oral 480 240 Output: Urine 1000 325 Other: Voiding Method Indwelling Catheter Indwelling Catheter Indwelling Catheter - Exam General examination - Alert and Oriented 3 in NAD, appears chronically debilitated Heart - + S1S2 no murmurs Lungs - Clear to auscultation Abdomen soft NT ND +ve BS, obese Extremities - No edema 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 - Moving all 4 extremities spontaneously Psych - Calm and cooperative - Labs CBC & Chem 7: 05/13/21 07:18 05/14/21 07:16 Labs: Abnormal Lab Results - Last 24 Hours (Table) 05/14/21 05/14/21 Range/Units 07:16 07:16 PT 22.0 H (9.0-12.0) sec INR 2.3 H (<1.2) Potassium 5.5 H (3.5-5.1) mmol/L Chloride 110 H (98-107) mmol/L Carbon Dioxide 18 L (22-30) mmol/L BUN 83 H (9-20) mg/dL Creatinine 1.78 H (0.66-1.25) mg/dL Glucose 108 H (74-99) mg/dL Microbiology - Last 24 Hours (Table) 05/11/21 23:44 Blood Culture - Preliminary Blood No Growth after 48 hours 05/11/21 23:44 Blood Culture - Preliminary Blood No Growth after 48 hours 05/12/21 14:30 Urine Culture - Final Urine,Voided Assessment and Plan Assessment: #UTI with sepsis -Patient reported difficulty with urination on admission -Initial UA was unremarkable however repeat UA showed microscopic hematuria and also large leukocyte esterase and was cloudy -Urine culture was negative -Follow blood cultures -ID started patient on Rocephin and Flagyl -WBC normalized and patient afebrile since admission #Urinary retention -Maintain Rangel catheter -Consult urology #Acute diarrhea -Resolved -Stool culture were not collected since patient has not had a bowel movement since last night. #Acute kidney injury with hyperkalemia -Creatinine slightly increased this morning -Potassium also increased. We'll give patient Kayexalate -Consult nephrology #Persistent A. fib with supratherapeutic INR -Heart rate is controlled -Pharmacy to dose Coumadin -INR is not therapeutic #Right toe wound -will refer to steam cleaning machine operator on discharge -No signs of osteomyelitis #Chronic conditions: Hypertension, hyperlipidemia, chronic CHF -Hold off on her home antihypertensives in setting of borderline BP -Continue with remaining home medications PT OT consult -> recommend prison facility DVT prophylaxis -Therapeutic INR Disposition: Awaiting for ID to give final antibiotic recommendations. Patient will be stable for discharge tomorrow if creatinine and potassium improve. CODE STATUS:Full Code Anticipated discharge date: 1 to [address]: [facility] facility
[2021-05-14] MEDS ORDERED: SODIUM BICARB 8.4% 50 ML SYR (1 MEQ/ML) IV STA (11:03)
[2021-05-14] MEDS ORDERED: WARFARIN 2.5 MG TAB PO ONE (18:00)
--- NOTE | 2021-05-14 18:07 | PN ---
PROGRESS NOTE DATE OF SERVICE: 05/14/2021 REASON FOR FOLLOWUP: Fever, likely urinary tract infection. INTERVAL HISTORY: The patient is currently afebrile. The patient is feeling better, breathing comfortably. Denies having any chest pain, shortness of breath or cough. No abdominal pain or diarrhea. PHYSICAL EXAMINATION: Blood pressure is 139/64, pulse of 73, temperature 97.6. He is 99% on 2 L nasal cannula. GENERAL DESCRIPTION: General description is an elderly male lying in bed in no distress. RESPIRATORY SYSTEM: Unlabored breathing. Clear to auscultation anteriorly. HEART: S1, S2. Regular rate and rhythm. ABDOMEN: Soft. No tenderness. LABS: INR is 2.3, creatinine 1.7. DIAGNOSTIC IMPRESSION AND PLAN: Patient admitted to hospital with a fever, positive UA concerning for a urinary tract infection in this patient who has shown overall improvement with Rocephin; to continue. Transition to oral Ceftin on discharge and monitor his clinical course closely. Check an ultrasound of the kidney because of elevated creatinine to make sure there is no evidence of any structural abnormality. MMODL / IJN: [id number] /
[2021-05-15 08:04] LABS: INR 1.6 (<1.2); Prothrombin Time 15.6 sec (9.0-12.0)
--- NOTE | 2021-05-15 08:14 | US ---
EXAMINATION TYPE: US kidneys/renal and bladder DATE OF EXAM: 05/15/2021 COMPARISON: NONE CLINICAL HISTORY: uti and bacteremia. Exam done portable. EXAM MEASUREMENTS: Right Kidney: 10.3 x 5.2 x 5.6 cm Left Kidney: 10.6 x 5.5 x 5.3 cm Right Kidney: No hydronephrosis or masses seen Left Kidney: 2.3cm exophytic cystic area mid pole Bladder: luna catheter in place Bilateral Jets seen: no No hydronephrosis or nephrolithiasis. Assessment of the bladder limited by Luna catheter. IMPRESSION: 1. No hydronephrosis or nephrolithiasis. Suspect 2.3 cm exophytic cyst involving the left kidney..
[2021-05-15] MEDS: metroNIDAZOLE 500 MG TAB PO SCH ×3 (08:46→20:17)
[2021-05-15] MEDS: GABAPENTIN 100 MG CAP PO SCH ×2 (08:46→20:17)
[2021-05-15] MEDS: EZETIMIBE 10 MG TAB PO SCH (08:46)
[2021-05-15] MEDS: atenoloL 50 MG TAB PO SCH (08:46)
[2021-05-15] MEDS: TAMSULOSIN 0.4 MG CAP.ER.24H PO SCH (08:46)
[2021-05-15] MEDS: PRAVASTATIN SODIUM 80 MG TAB PO SCH (08:46)
[2021-05-15] MEDS: PANTOPRAZOLE 40 MG/10 ML VIAL IV SCH (08:47)
--- NOTE | 2021-05-15 08:48 | P.NPCON ---
History of Present Illness - Reason for Consult acute renal failure - History of Present Illness Reason for consultation: Acute kidney injury History of present illness: I sent patient is a 89-year-old male seen in renal consultation for acute kidney injury. Creatinine was 2.28 on admission and was 1.78 as of yesterday. Unknown baseline renal function. Patient presented to the hospital with generalized weakness. Patient states he was unable to get out of his bed. He denies any vomiting or diarrhea. He was on lisinopril which is held. Oral intake is good. No history of diabetes. No family history of renal disease. No proteinuria on UA. Blood pressure was as low as 93/56 this admission but is 131/81 this morning. He was noted to have urinary retention and a Rangel catheter was placed. Urology is following. He is on Flomax. I don't see any nonsteroidals his home medication list. Patient states he does take medications for pain but is unsure of the names. No edema. Denies gross hematuria or dysuria. Vital signs are stable. General: The patient appeared well nourished and normally developed. HEENT: Head exam is unremarkable. LUNGS: Breath sounds decreased. HEART: Rate and Rhythm are regular. ABDOMEN: Soft, no distention. Obese. EXTREMITITES: No edema. Past Medical History Past Medical History: Atrial Fibrillation, GERD/Reflux, Hypertension, Osteoarthritis (OA) Additional Past Medical History / Comment(s): Pts History of Any Multi-Drug Resistant Organisms: None Reported Past Surgical History: Pacemaker Additional Past Surgical History / Comment(s): Gallbladder removed, pt has a hx of two pacemakers placed. Past Anesthesia/Blood Transfusion Reactions: No Reported Reaction Type of Cardiac Device: Permanent Pacemaker Device Placement Date:: 2017 Past Psychological History: No Psychological Hx Reported Smoking Status: Former smoker Past Alcohol Use History: None Reported Past Drug Use History: None Reported - Past Family History Father Family Medical History: CVA/TIA, Myocardial Infarction (CO) Medications and Allergies Home Medications Medication Instructions Recorded Confirmed Type Atenolol [Tenormin] 100 mg PO DAILY 05/12/21 05/12/21 History Ezetimibe [Zetia] 10 mg PO DAILY 05/12/21 05/12/21 History Gabapentin [Neurontin] 100 mg PO BID 05/12/21 05/12/21 History Pravastatin Sodium [Pravachol] 80 mg PO DAILY 05/12/21 05/12/21 History Warfarin [Coumadin] 2.5 mg PO FRSA@0900 05/12/21 05/12/21 History Warfarin [Coumadin] 5 mg PO SUMOTUWETH@0900 05/12/21 05/12/21 History lisinopriL 40 mg PO DAILY 05/12/21 05/12/21 History Allergies Allergy/AdvReac Type Severity Reaction Status Date / Time No Known Allergies Allergy Verified 05/12/21 09:09 Physical Exam Vitals: Vital Signs Temp Pulse Resp BP Pulse Ox 05/15/21 04:00 71 18 131/81 99 05/15/21 00:00 70 18 122/67 96 05/14/21 20:00 97.8 F 72 18 124/61 100 05/14/21 19:32 97 05/14/21 16:00 73 16 139/64 99 05/14/21 14:00 60 16 05/14/21 12:00 97.9 F 60 16 131/63 94 L Intake and Output 05/14/21 05/15/21 05/15/21 22:59 06:59 14:59 Intake Total 598 Output Total 725 900 Balance -127 -900 Intake: Oral 598 Output: Urine 725 900 Other: Voiding Method Indwelling Catheter Indwelling Catheter Weight 108.5 kg Results - Lab Results Most recent lab results Calcium 8.9 mg/dL (8.4-10.2) 05/14/21 07:16 Phosphorus 3.8 mg/dL (2.5-4.5) 05/12/21 08:47 Magnesium 1.9 mg/dL (1.6-2.3) 05/12/21 08:47 05/13/21 07:18 05/14/21 15:25 Assessment and Plan Plan: Assessment: 1. Acute kidney injury mostly prerenal secondary to hypotension and urinary retention. Creatinine was 2.28 on admission and is 1.78 today. No proteinuria on UA. Unknown baseline renal function. No hydronephrosis noted on kidney ultrasound. 2. Urinary retention status post Rangel catheter placement. On Flomax. Urology following. 3. Metabolic acidosis secondary to acute kidney injury. Improving. 4. Hyperkalemia secondary to acute kidney injury, lisinopril, metabolic acidosis and urinary retention. Better. 5. Rule out chronic kidney disease. Will have to establish baseline renal function outpatient. Plan: Currently not on any IV fluids or Lasix. Oral intake is good. Avoid nephrotoxins. Continue to hold lisinopril. Avoid nephrotoxins. Continue to monitor renal function and urine output. Thank you for the consultation. I will continue to follow the patient with you during his hospital stay.
--- NOTE | 2021-05-15 11:44 | P.PN ---
Subjective Progress Note Date: 05/15/21 Hospital course: Patient is a very pleasant 89-year-old male with a past medical history of atrial fibrillation on Coumadin, congestive heart failure, hypertension, hyperlipidemia, BPH, gout, resented on 05/12/21 with a chief complaint of weakness, lethargy and chills. Patient was found elevated temp of 101.4F with a WBC count of 17. He was also noted to have urinary retention in the emergency Department and a Rangel catheter was placed. Patient received diagnosis of sepsis secondary to UTI, urinary retention, acute kidney injury, and right toe wound and was admitted under our services with consultation to urology, nephrology, and infectious disease. Physical exam: Patient seen and fully evaluated at the bedside this morning. He reports decreased appetite stating he did not eat much of his breakfast. He denies having any other complaints including headache, lightheadedness, dizziness, chest pain, palpitations, shortness of breath, abdominal pain, flank pain, nausea or vomiting. Rangel catheter remains in place with straw-colored urine in collection chamber. Vital signs reviewed and stable. General: Nontoxic, no distress and appears stated age. Derm: Skin warm and dry, normal coloration for ethnicity. Right second toe with mild edema, erythema, and a small ulcerations/area of necrosis on the tip. Head: Atraumatic, normocephalic and symmetric. Eyes: EOMs intact, no lid lag, and anicteric sclera Mouth: no lip lesions, mucus membranes moist Cardiovascular: regular rate and rhythm with normal S1S2, murmur present, positive posterior tibial pulses bilaterally, and cap refill < 2 seconds. Lungs: Respirations even, regular, and unlabored on room air. Lungs CTA bilaterally, no rhonchi, no rales, no wheezing, and no accessory muscle usage. GI/: soft, nontender to palpation, no guarding, no appreciable organomegaly. Rangel catheter in place. Ext: ROM intact. No gross muscle atrophy, no edema, no contractures. Bilateral lower extremity venous discoloration with ulceration to right sharp. Neuro: Speech clear, face symmetrical and CN II-XII grossly intact with no noted focal neuro deficits Psych: Alert and oriented to person, place, time, and situation. Appropriate and pleasant affect. Assessment and Plan of Care: UTI with sepsis -Patient reported difficulty with urination on admission -Initial UA was unremarkable however repeat UA showed microscopic hematuria with large leukocyte esterase, 46 WBCs and was cloudy -Urine culture was negative -Blood cultures showing no growth after 72 hours -ID started patient on Rocephin and Flagyl -WBC normalized and patient afebrile since admission Urinary retention -Maintain Rangel catheter -Urology following, prescribed tamsulosin. -Rangel catheter to be removed and voiding trial to be initiated. -Bladder scan for postvoid residuals. Acute diarrhea, resolved -Resolved -Stool culture were not collected since patient has not had a bowel movement since last night. Acute kidney injury, improving -BARI likely secondary to urinary retention Hold nephrotoxic medications including lisinopril. -Maintain Rangel catheter and once removed, monitor post void residuals closely and watch for retention. -Consult nephrology -Continued close monitoring with repeat a.m. labs. Hyperkalemia -Likely secondary to BARI -Potassium 5.4 this morning. -We will continue to monitor closely with repeat a.m. labs. Persistent atrial fibrillation -Heart rate is controlled -Pharmacy to dose Coumadin, INR currently subtherapeutic at 1.6 Right foot second toe wound -Will refer to sheet metal lay out worker on discharge -No signs of osteomyelitis Chronic conditions: Hypertension, hyperlipidemia, chronic CHF -Hold off on her home antihypertensives in setting of borderline BP -Continue with remaining home medications Weakness and fatigue -Likely secondary to infection with UTI. -PT OT consulted --> recommending shelter facility CODE STATUS: Full code DVT prophylaxis: Warfarin, pharmacy to dose Discussed with: Patient and RN, patient's is coming out to facility this evening Anticipated discharge date: Awaiting for ID to give final antibiotic recommendations. Patient will be stable for discharge tomorrow to [facility] if he and his agree upon this placement and creatinine/potassium improve. Voiding trial also being completed today. Anticipated discharge place: SNF--> [facility]. A total of 40 minutes was spent on the care of this complex patient more than 50 % of the time was spent in counseling and care coordination. Objective - Vital Signs Vital signs: Vital Signs Temp 97.8 F 05/14/21 20:00 Pulse 71 05/15/21 04:00 Resp 18 05/15/21 04:00 BP 131/81 05/15/21 04:00 Pulse Ox 99 05/15/21 04:00 Intake & Output 05/14/21 05/15/21 05/15/21 18:59 06:59 18:59 Intake Total 526 480 Output Total 725 900 Balance -199 -420 Weight 108.5 kg Intake: Intake, IV Titration 50 Amount cefTRIAXone 2 gm In 50 Sodium Chloride 0.9% 50 ml @ 100 mls/hr IVPB Q24HR [facility] Rx#:[id number] Oral 476 480 Output: Urine 725 900 Other: Voiding Method Indwelling Catheter Indwelling Catheter - Labs CBC & Chem 7: 05/15/21 07:03 05/15/21 07:03 Labs: Abnormal Lab Results - Last 24 Hours (Table) 05/15/21 Range/Units 07:03 PT 15.6 H (9.0-12.0) sec INR 1.6 H (<1.2) Microbiology - Last 24 Hours (Table) 05/11/21 23:44 Blood Culture - Preliminary Blood No Growth after 72 hours 05/11/21 23:44 Blood Culture - Preliminary Blood No Growth after 72 hours
[2021-05-15 11:54] LABS: Calcium 8.5 mg/dL (8.4-10.2); Magnesium 2.1 mg/dL (1.6-2.3); Potassium 5.4 mmol/L (3.5-5.1)
[2021-05-15 12:00] LABS: Basophils # (A) 0.1 k/uL (0-0.2); Basophils % (A) 1 %; Eosinophils # (A) 0.2 k/uL (0-0.7); Eosinophils % (A) 3 %; HCT 37.3 % (39.0-53.0); HGB 12.1 gm/dL (13.0-17.5); Lymphocytes # (A) 1.1 k/uL (1.0-4.8); Lymphocytes % (A) 12 %; MCH 32.3 pg (25.0-35.0); MCHC 32.5 g/dL (31.0-37.0); MCV 99.4 fL (80.0-100.0); Macrocytosis Slight; Mean Platelet Volume 8.5; Monocytes # (A) 0.5 k/uL (0-1.0); Monocytes % (A) 6 %; Neutrophils # (A) 7.2 k/uL (1.3-7.7); Neutrophils % (A) 77 %; Platelet Count 133 k/uL (150-450); RBC 3.76 m/uL (4.30-5.90); RDW 14.4 % (11.5-15.5); WBC 9.4 k/uL (3.8-10.6)
[2021-05-15] MEDS ORDERED: WARFARIN 2.5 MG TAB PO ONE (18:00)
--- NOTE | 2021-05-15 18:43 | PN ---
PROGRESS NOTE DATE OF SERVICE: 05/15/2021 REASON FOR FOLLOWUP: Fever, possible UTI. INTERVAL HISTORY: The patient is afebrile. The patient is currently breathing comfortably. Denies having any chest pain or shortness of breath or cough. No abdominal pain or diarrhea. PHYSICAL EXAMINATION: On examination, blood pressure 103/58 with a pulse of 71, temperature 98 to 99.3. He is 95% on room air. GENERAL DESCRIPTION: General description is an elderly male lying in bed in no distress. RESPIRATORY SYSTEM: Unlabored breathing. Clear to auscultation anteriorly. HEART: S1, S2. Regular rate and rhythm. ABDOMEN: Soft. No tenderness. LABS: Hemoglobin is .1, white count 9.4, BUN of , creatinine 1.46. Culture has been negative so far. DIAGNOSTIC IMPRESSION AND PLAN: Patient with fever, diarrhea and urinary retention concerning for a urinary source of an infection/urinary tract infection. The patient's fever is resolved with Rocephin; to continue. Transition to a short course of oral Ceftin on discharge and monitor his clinical course closely. MMODL / IJN: [id number] /
[2021-05-16] MEDS: atenoloL 50 MG TAB PO SCH (08:59)
[2021-05-16] MEDS: PANTOPRAZOLE 40 MG/10 ML VIAL IV SCH (08:59)
[2021-05-16] MEDS: metroNIDAZOLE 500 MG TAB PO SCH ×2 (08:59→16:35)
[2021-05-16] MEDS: TAMSULOSIN 0.4 MG CAP.ER.24H PO SCH (08:59)
[2021-05-16] MEDS: GABAPENTIN 100 MG CAP PO SCH (08:59)
[2021-05-16] MEDS: PRAVASTATIN SODIUM 80 MG TAB PO SCH (09:00)
[2021-05-16] MEDS: EZETIMIBE 10 MG TAB PO SCH (09:00)
[2021-05-16 09:06] VITALS: RESP 16; TEMP 97.8
--- NOTE | 2021-05-16 09:21 | P.PN ---
Subjective Patient is seen in follow-up for acute kidney injury. Renal function better. No chest pain or shortness of breath. Nonoliguric. Has a Rangel catheter for urinary retention. Oral intake is good. Vital signs are stable. General: The patient appeared well nourished and normally developed. HEENT: Head exam is unremarkable. Neck is without jugular venous distension. LUNGS: Breath sounds decreased. HEART: Rate and Rhythm are regular. ABDOMEN: Soft, obese. EXTREMITITES: No edema. Objective - Vital Signs Vital signs: Vital Signs Temp 97.8 F 05/16/21 08:00 Pulse 70 05/16/21 08:00 Resp 16 05/16/21 08:00 BP 128/65 05/16/21 08:00 Pulse Ox 97 05/16/21 08:00 Intake & Output 05/15/21 05/16/21 05/16/21 18:59 06:59 18:59 Intake Total 707 Output Total 700 1550 Balance 7 -1550 Weight 110.4 kg Intake: Intake, IV Titration 50 Amount cefTRIAXone 2 gm In 50 Sodium Chloride 0.9% 50 ml @ 100 mls/hr IVPB Q24HR [facility] Rx#:[id number] Oral 657 Output: Urine 700 1550 Other: Voiding Method Indwelling Catheter Indwelling Catheter - Labs CBC & Chem 7: 05/15/21 07:03 05/15/21 07:03 Labs: Abnormal Lab Results - Last 24 Hours (Table) 05/15/21 05/15/21 Range/Units 07:03 07:03 RBC 3.76 L (4.30-5.90) m/uL Hgb 12.1 L (13.0-17.5) gm/dL Hct 37.3 L (39.0-53.0) % Plt Count 133 L (150-450) k/uL Potassium 5.4 H (3.5-5.1) mmol/L BUN 76 H (9-20) mg/dL Creatinine 1.46 H (0.66-1.25) mg/dL Glucose 105 H (74-99) mg/dL Microbiology - Last 24 Hours (Table) 05/11/21 23:44 Blood Culture - Preliminary Blood No Growth after 96 hours 05/11/21 23:44 Blood Culture - Preliminary Blood No Growth after 96 hours 05/15/21 05:11 Stool Culture - Preliminary Stool Assessment and Plan Plan: Assessment: 1. Acute kidney injury mostly prerenal secondary to hypotension and urinary retention. Creatinine was 2.28 on admission and is 1.46 today. No proteinuria on UA. Unknown baseline renal function. No hydronephrosis noted on kidney ultrasound. 2. Urinary retention status post Rangel catheter placement. On Flomax. Urology following. 3. Metabolic acidosis secondary to acute kidney injury. Improved. 4. Hyperkalemia secondary to acute kidney injury, lisinopril, metabolic acidosis and urinary retention. 5. Rule out chronic kidney disease. Will have to establish baseline renal function outpatient. Plan: Currently not on any IV fluids or Lasix. Oral intake is good. Avoid nephrotoxins. Continue to hold lisinopril. Low potassium diet. Avoid nephrotoxins. Continue to monitor renal function and urine output.
[2021-05-16 09:30] LABS: HCT 39.8 % (39.0-53.0); HGB 12.6 gm/dL (13.0-17.5); Hypochromasia Slight; MCH 32.2 pg (25.0-35.0); MCHC 31.6 g/dL (31.0-37.0); MCV 101.9 fL (80.0-100.0); Macrocytosis Slight; Mean Platelet Volume 7.7; Platelet Count 147 k/uL (150-450); RDW 14.4 % (11.5-15.5); WBC 8.1 k/uL (3.8-10.6)
[2021-05-16 09:43] LABS: Calcium 8.1 mg/dL (8.4-10.2)
[2021-05-16 09:47] LABS: Potassium 4.9 mmol/L (3.5-5.1)
--- NOTE | 2021-05-16 09:50 | P.PN ---
<Olu Gutierrez - Last Filed: 05/16/21 10:47> Subjective Progress Note Date: 05/16/21 Hospital course: Patient is a very pleasant 89-year-old male with a past medical history of atr ial fibrillation on Coumadin, congestive heart failure, hypertension, hyperlipidemia, BPH, gout, resented on 05/12/21 with a chief complaint of weakness, lethargy and chills. Patient was found elevated temp of 101.4F with a WBC count of 17. He was also noted to have urinary retention in the emergency Department and a Rangel catheter was placed. Patient received diagnosis of sepsis secondary to UTI, urinary retention, acute kidney injury, and right toe wound and was admitted under our services with consultation to urology, nephrology, and infectious disease. Physical exam: Patient seen and fully evaluated at the bedside this morning. He reports having a better appetite today and feeling overall slightly better. He denies having any other complaints including headache, lightheadedness, dizziness, chest pain, palpitations, shortness of breath, abdominal pain, flank pain, nausea or vomiting. Rangel catheter remains in place with straw-colored urine in collection chamber. Discussed with RN need to remove Rangel and complete voiding challenge. Vital signs reviewed and stable. General: Nontoxic, no distress and appears stated age. Derm: Skin warm and dry, normal coloration for ethnicity. Right second toe with mild edema, erythema, and a small ulcerations/area of necrosis on the tip. Head: Atraumatic, normocephalic and symmetric. Eyes: EOMs intact, no lid lag, and anicteric sclera Mouth: no lip lesions, mucus membranes moist Cardiovascular: regular rate and rhythm with normal S1S2, murmur present, positive posterior tibial pulses bilaterally, and cap refill < 2 seconds. Lungs: Respirations even, regular, and unlabored on room air. Lungs CTA bilaterally, no rhonchi, no rales, no wheezing, and no accessory muscle usage. GI/: soft, nontender to palpation, no guarding, no appreciable organomegaly. Rangel catheter in place. Ext: ROM intact. No gross muscle atrophy, no edema, no contractures. Bilateral lower extremity venous discoloration with ulceration to right sharp. Neuro: Speech clear, face symmetrical and CN II-XII grossly intact with no noted focal neuro deficits Psych: Alert and oriented to person, place, time, and situation. Appropriate and pleasant affect. Assessment and Plan of Care: UTI with sepsis -Patient reported difficulty with urination on admission -Initial UA was unremarkable however repeat UA showed microscopic hematuria with large leukocyte esterase, 46 WBCs and was cloudy -Urine culture was negative -Blood cultures showing no growth after 96 hours -ID started patient on Rocephin and Flagyl, patient to be transitioned to oral Ceftin upon discharge per recommendation of ID -WBC normalized and patient afebrile since admission Urinary retention -Urology following, prescribed tamsulosin. -Rangel catheter to be removed and voiding trial to be initiated. -Bladder scan for postvoid residuals. Acute diarrhea, resolved -Stool culture pending Acute kidney injury, improving -BARI likely secondary to urinary retention, improving with current BUN 68, creatinine 1.41, and GFR 44 -Hold nephrotoxic medications including lisinopril. -Nephrology following -Continued close monitoring with repeat a.m. labs. Hyperkalemia, resolved -Likely secondary to BARI -We will continue to monitor closely with repeat a.m. labs. Persistent atrial fibrillation -Heart rate is controlled -Pharmacy to dose Coumadin, INR currently subtherapeutic at 1.5 Right foot second toe wound -Will refer to motion picture set up worker on discharge -No signs of osteomyelitis Chronic conditions: Hypertension, hyperlipidemia, chronic CHF -Hold off on her home antihypertensives in setting of borderline BP -Continue with remaining home medications Weakness and fatigue -Likely secondary to infection with UTI. -PT OT consulted --> recommending half-way facility CODE STATUS: Full code DVT prophylaxis: Warfarin, pharmacy to dose Discussed with: Patient and RN, patient's is coming out to facility this evening Anticipated discharge date: Later this afternoon versus tomorrow morning with plans for discharge to [facility] vs home with home care. Arrangements being made by social work at this time. Voiding trial also being completed today. Anticipated discharge place: Home with home care versus [facility]. A total of 40 minutes was spent on the care of this complex patient more than 50% of the time was spent in counseling and care coordination. Objective - Vital Signs Vital signs: Vital Signs Temp 97.8 F 05/16/21 08:00 Pulse 70 05/16/21 08:00 Resp 16 05/16/21 08:00 BP 128/65 05/16/21 08:00 Pulse Ox 97 05/16/21 08:00 Intake & Output 05/15/21 05/16/21 05/16/21 18:59 06:59 18:59 Intake Total 707 Output Total 700 1550 Balance 7 -1550 Weight 110.4 kg Intake: Intake, IV Titration 50 Amount cefTRIAXone 2 gm In 50 Sodium Chloride 0.9% 50 ml @ 100 mls/hr IVPB Q24HR [facility] Rx#:[id number] Oral 657 Output: Urine 700 1550 Other: Voiding Method Indwelling Catheter Indwelling Catheter - Labs CBC & Chem 7: 05/16/21 08:53 05/16/21 08:53 Labs: Abnormal Lab Results - Last 24 Hours (Table) 05/15/21 05/15/21 05/16/21 Range/Units 07:03 07:03 08:53 RBC 3.76 L 3.90 L (4.30-5.90) m/uL Hgb 12.1 L 12.6 L (13.0-17.5) gm/dL Hct 37.3 L (39.0-53.0) % MCV 101.9 H (80.0-100.0) fL Plt Count 133 L 147 L (150-450) k/uL Sodium (137-145) mmol/L Potassium 5.4 H (3.5-5.1) mmol/L Chloride (98-107) mmol/L Carbon Dioxide (22-30) mmol/L BUN 76 H (9-20) mg/dL Creatinine 1.46 H (0.66-1.25) mg/dL Glucose 105 H (74-99) mg/dL Calcium (8.4-10.2) mg/dL 05/16/21 Range/Units 08:53 RBC (4.30-5.90) m/uL Hgb (13.0-17.5) gm/dL Hct (39.0-53.0) % MCV (80.0-100.0) fL Plt Count (150-450) k/uL Sodium 136 L (137-145) mmol/L Potassium (3.5-5.1) mmol/L Chloride 110 H (98-107) mmol/L Carbon Dioxide 16 L (22-30) mmol/L BUN 68 H (9-20) mg/dL Creatinine 1.41 H (0.66-1.25) mg/dL Glucose 130 H (74-99) mg/dL Calcium 8.1 L (8.4-10.2) mg/dL Microbiology - Last 24 Hours (Table) 05/11/21 23:44 Blood Culture - Preliminary Blood No Growth after 96 hours 05/11/21 23:44 Blood Culture - Preliminary Blood No Growth after 96 hours 05/15/21 05:11 Stool Culture - Preliminary Stool <Estella Dacosta - Last Filed: 05/16/21 20:02> Subjective Olu Gutierrez NP rendered care for this patient independently, reviewed the findings and plan as documented in the note above. I did not physically speak with or examine the patient on this date. Patient discharged Objective - Vital Signs Vital signs: Vital Signs Temp 97.8 F 05/16/21 08:00 Pulse 65 05/16/21 16:00 Resp 16 05/16/21 16:00 BP 116/66 05/16/21 16:00 Pulse Ox 93 L 05/16/21 16:00 Intake & Output 05/16/21 05/16/21 05/17/21 06:59 18:59 06:59 Intake Total 720 Output Total 1550 525 Balance -1550 195 Weight 110.4 kg Intake: Oral 720 Output: Urine 1550 525 Other: Voiding Method Indwelling Catheter Indwelling Catheter # Bowel Movements 1 - Labs CBC & Chem 7: 05/16/21 08:53 05/16/21 16:52 Labs: Abnormal Lab Results - Last 24 Hours (Table) 05/16/21 05/16/21 05/16/21 Range/Units 08:53 08:53 08:53 RBC 3.90 L (4.30-5.90) m/uL Hgb 12.6 L (13.0-17.5) gm/dL MCV 101.9 H (80.0-100.0) fL Plt Count 147 L (150-450) k/uL PT 15.2 H (9.0-12.0) sec INR 1.5 H (<1.2) Sodium 136 L (137-145) mmol/L Chloride 110 H (98-107) mmol/L Carbon Dioxide 16 L (22-30) mmol/L BUN 68 H (9-20) mg/dL Creatinine 1.41 H (0.66-1.25) mg/dL Glucose 130 H (74-99) mg/dL Calcium 8.1 L (8.4-10.2) mg/dL Microbiology - Last 24 Hours (Table) 05/11/21 23:44 Blood Culture - Preliminary Blood No Growth after 96 hours 05/11/21 23:44 Blood Culture - Preliminary Blood No Growth after 96 hours
[2021-05-16 09:57] LABS: INR 1.5 (<1.2); Prothrombin Time 15.2 sec (9.0-12.0)
[2021-05-16] MEDS ORDERED: SODIUM BICARB 8.4% 50 ML SYR (1 MEQ/ML) IV STA (13:14)
[2021-05-16 16:38] VITALS: BP 116/66; PULSE 65
--- NOTE | 2021-05-16 17:35 | P.DS ---
<Olu Gutierrez - Last Filed: 05/16/21 17:37> Providers Expected date of discharge: 05/16/21 Hospital Course: Discharge Diagnosis: UTI with sepsis Urinary retention Acute diarrhea, resolved Acute kidney injury, improving Hyperkalemia, resolved Persistent atrial fibrillation Right foot second toe wound Chronic conditions: Hypertension, hyperlipidemia, chronic CHF Weakness and fatigue Hospital Course: Patient is a very pleasant 89-year-old male with a past medical history of atrial fibrillation on Coumadin, congestive heart failure, hypertension, hyperlipidemia, BPH, gout, resented on 05/12/21 with a chief complaint of weakness, lethargy and chills. Patient was found elevated temp of 101.4F with a WBC count of 17. He was also noted to have urinary retention in the emergency Department and a Rangel catheter was placed. Patient received diagnosis of sepsis secondary to UTI, urinary retention, acute kidney injury, and right toe wound and was admitted under our services with consultation to urology, nephrology, and infectious disease. Patient was treated with IV antibiotics and a Rangel catheter was placed. Patient was started on Flomax for treatment of urinary retention, Rangel catheter later removed and patient successfully completed voiding challenge with no reported urinary retention as evidenced by bladder scan reports by RN. BARI resolved. Patient's condition was stabilized. He was evaluated by PT/OT secondary to his reports of weakness. Initial recommendations for discharge was for SNF, however patient and his requesting home care and declining SNF at this time. Patient being discharged home on oral antibiotic Ceftin for 5 more days for a total of 7 days of antibiotic therapy. Patient being discharged home with [facility] home care with physical therapy and to follow up outpatient with PCP, urology, and podiatry as discussed. Patient stable for discharge at this time. Please see progress note completed earlier today to review a full detailed physical examination. A total of 45 minutes of time were spent preparing this complex discharge summary. Patient Condition at Discharge: Stable Plan - Discharge Summary Discharge Rx Participant: No New Discharge Prescriptions: New Tamsulosin [Flomax] 0.4 mg PO DAILY cap.er.24h Cefuroxime Axetil [Ceftin] 500 mg PO BID 5 Days #10 tab Continue Warfarin [Coumadin] 2.5 mg PO FRSA@0900 lisinopriL 40 mg PO DAILY Warfarin [Coumadin] 5 mg PO SUMOTUWETH@0900 Pravastatin Sodium [Pravachol] 80 mg PO DAILY Gabapentin [Neurontin] 100 mg PO BID Ezetimibe [Zetia] 10 mg PO DAILY Atenolol [Tenormin] 100 mg PO DAILY Discharge Medication List Atenolol [Tenormin] 100 mg PO DAILY 05/12/21 [History] Ezetimibe [Zetia] 10 mg PO DAILY 05/12/21 [History] Gabapentin [Neurontin] 100 mg PO BID 05/12/21 [History] Pravastatin Sodium [Pravachol] 80 mg PO DAILY 05/12/21 [History] Warfarin [Coumadin] 2.5 mg PO FRSA@0905/12/21 [History] Warfarin [Coumadin] 5 mg PO SUMOTUWETH@89905/12/21 [History] lisinopriL 40 mg PO DAILY 05/12/21 [History] Cefuroxime Axetil [Ceftin] 500 mg PO BID 5 Days #10 tab 05/16/21 [Rx] Tamsulosin [Flomax] 0.4 mg PO DAILY cap.er.24h 05/16/21 [Rx] Follow up Appointment(s)/Referral(s): [facility] [NON-STAFF] - Juliocesar Ruiz MD [STAFF PHYSICIAN] - 1 Week Stewart Early DPM [REFERRING] - 1 Week (Follow-up with wound to right foot second toe) Trevor Iqbal MD [REFERRING] - 1-2 Days Ambulatory/Diagnostic Orders: Basic Metabolic Panel [LAB.AMB] Location: None Selected Prothrombin Time INR [LAB.AMB] Time Frame: 3 Days, Location: None Selected Activity/Diet/Wound Care/Special Instructions: Activity: As tolerated Diet: Heart healthy diet Special Instructions: You are being discharged home with [facility] home health care and physical therapy. You will need to schedule an appointment with syrup mixer helper, Dr. Early with [facility] to follow-up on the wound to your right foot second toe. You will also need to schedule an appointment with urology, Dr. Ruiz, in one week to follow up with urinary retention. You are being discharged home on oral antibiotic Ceftin, please take exactly as directed and complete entire course. Thank you for allowing us to participate in your care, it was a pleasure having you for our patient. <Olesya,Estella A - Last Filed: 05/16/21 19:59> Providers Date of admission: 05/12/21 03:12 Attending physician: Ramila Guerrero MD Consults: 05/12/21 04:34 Consult Physician Urgent Consulting Provider: Casey Lopez Consult Reason/Comments: SIRS Do you want consulting provider notified?: Yes 05/13/21 13:55 Consult Physician Routine Consulting Provider: Juliocesar Ruiz Consult Reason/Comments: urinary retension Do you want consulting provider notified?: Yes 05/14/21 10:05 Consult Physician Routine Consulting Provider: Kenna Rachel Consult Reason/Comments: BARI and hyperkalemia Do you want consulting provider notified?: Yes Primary care physician: Stated None Hospital Course: Olu Gutierrez NP rendered care for this patient independently, reviewed the findings and plan as documented in the note above. I did not physically speak with or examine the patient on this date. Patient with some hyperkalemia hospital stay, BARI is resolved. Agree with repeat basic metabolic profile in 3 days for determination of lisinopril is a good medication to continue.
[2021-05-16] MEDS ORDERED: WARFARIN 5 MG TAB PO ONE (18:00)
--- NOTE | 2021-05-16 19:05 | PN ---
PROGRESS NOTE DATE OF SERVICE: 05/16/2021 REASON FOR FOLLOWUP: Fever, possible UTI. INTERVAL HISTORY: The patient is afebrile. The patient is currently feeling better. He is breathing comfortably. Denies having any chest pain, shortness of breath or cough. No abdominal pain or diarrhea. PHYSICAL EXAMINATION: Blood pressure 115/66, pulse of 65, temperature 98. He is 93% on room air. General description is an elderly male lying in bed in no distress. Respiratory system: Unlabored breathing, clear to auscultation anteriorly. Heart S1, S2. Regular rate and rhythm. Abdomen soft, no tenderness. LABS: Hemoglobin is 12.7, white count 8.1. BUN of 16, creatinine 1.41. DIAGNOSTIC IMPRESSION AND PLAN: Patient with fever. Concern for possible UTI, likely from enteric Gram-negative pathogen. Overall improvement with Rocephin therapy. Transition to oral Ceftin and close outpatient followup. MMODL / IJN: [id number] /
[2021-05-16] MEDS ORDERED: SODIUM BICARBONATE TAB 650 MG TAB PO SCH (21:00)
== END 2021-05-16 18:47 | disposition home health service (06) | DRG 872 ==
LOC: EC 23:19 → 3SCARD 05-12 03:12
PROVIDERS: ADMIT Internal Medicine; ATTEND Internal Medicine
DX: A41.9 Sepsis, unspecified organism (principal); E87.2 Acidosis; I48.19 Other persistent atrial fibrillation; N17.9 Acute kidney failure, unspecified; N39.0 Urinary tract infection, site not specified; Z20.822 Contact with and (suspected) exposure to COVID-19; D64.9 Anemia, unspecified; D69.6 Thrombocytopenia, unspecified; E66.9 Obesity, unspecified; M19.90 Unspecified osteoarthritis, unspecified site; N40.1 Benign prostatic hyperplasia with lower urinary tract symptoms; I11.0 Hypertensive heart disease with heart failure; N18.9 Chronic kidney disease, unspecified; Z68.34 Body mass index [BMI] 34.0-34.9, adult; R33.8 Other retention of urine; L08.9 Local infection of the skin and subcutaneous tissue, unspecified; R19.7 Diarrhea, unspecified; I95.9 Hypotension, unspecified; T46.4X5A Adverse effect of angiotensin-converting-enzyme inhibitors, initial encounter; M10.9 Gout, unspecified; E78.5 Hyperlipidemia, unspecified; E87.5 Hyperkalemia; I50.9 Heart failure, unspecified; K21.9 Gastro-esophageal reflux disease without esophagitis; R31.29 Other microscopic hematuria; R79.1 Abnormal coagulation profile; T45.515A Adverse effect of anticoagulants, initial encounter; Z79.01 Long term (current) use of anticoagulants; Z79.899 Other long term (current) drug therapy; Z82.49 Family history of ischemic heart disease and other diseases of the circulatory system; Z87.891 Personal history of nicotine dependence; Z82.3 Family history of stroke; Z90.49 Acquired absence of other specified parts of digestive tract; Z98.890 Other specified postprocedural states
CPT/HCPCS: 36415; 71045; 71046; 76770; 80048; 80053; 81001; 82272; 82550; 82553; 83605; 83735; 83880; 84100; 84132; 84443; 84484; 85025; 85027; 85610; 85730; 86140; 87040; 87045; 87046; 87086; 87635; 93005

== ENCOUNTER → 2021-05-19 | Outpatient (CLI) | payer MEDICARE ==
--- NOTE | 2021-05-19 14:21 | US ---
EXAMINATION TYPE: US venous doppler duplex LE DATE OF EXAM: 05/19/2021 2:00 PM COMPARISON: NONE CLINICAL HISTORY: I82.90 DVT WILLARD LOWER LEG. Swelling SIDE PERFORMED: Bilateral TECHNIQUE: The lower extremity deep venous system is examined utilizing real time linear array sonog sameer with graded compression, doppler sonography and color-flow sonography. VESSELS IMAGED: Common Femoral Vein Deep Femoral Vein Greater Saphenous Vein * Femoral Vein Popliteal Vein Small Saphenous Vein * Proximal Calf Veins (* superficial vessels) Right Leg: Negative for DVT Left Leg: Negative for DVT Grayscale, color doppler, spectral doppler imaging performed of the deep veins of the bilateral lower extremities. There is normal flow, compressibility, vascular waveforms. IMPRESSION: No ultrasound evidence for acute DVT in either lower extremity.
== END | disposition home or self-care (01) ==
LOC: RADUSWWP 13:33
PROVIDERS: ATTEND Podiatrist Foot & Ankle Surgery
DX: I82.403 Acute embolism and thrombosis of unspecified deep veins of lower extremity, bilateral (principal)
CPT/HCPCS: 93970